=== PATIENT | female | born 1975 | race Caucasian/White ===

== ENCOUNTER 2018-01-28 08:49 | Emergency (ER) | payer OTHER, SELFPAY ==
[2018-01-28 09:03] VITALS: BP 147/92; PULSE 105; RESP 20; TEMP 36.9; O2SAT 98; BMI 43.0
--- NOTE | 2018-01-28 09:03 | ED.FEMALEGU ---
HPI - Female Genitourinary General Chief complaint: Urogenital-Female Stated complaint: UTI SYMPTOMS, BACK/SHOULDER PAIN Time Seen by Provider: 01/28/18 09:02 Source: patient Mode of arrival: ambulatory Limitations: no limitations History of Present Illness HPI Narrative: Patient is a 42-year-old female here for evaluation of approximately 4 days of dysuria, frequency, urgency and now 2-3 days of lower back pain. No vomiting. No fevers. Did try [id number] AZO without any improvement of symptoms. She states she has had a urinary tract infection the past but was several years ago. No vaginal bleeding. Is not on control. No history of sexually transmitted infections. Is not concerned about those now. No change in bowel habits. Related Data Home Medications Medication Instructions Recorded Confirmed Cyclobenzaprine Hydrochloride 0 PO * DOSE/FREQUENCY #0 01/02/07 (CYCLOBENZAPRINE HCL) IBUPROFEN (Motrin / Advil) 600 mg PO #0 01/02/07 Previous Rx's Medication Instructions Recorded phenazopyridine [Pyridium] 100 mg PO TID PRN 3 Days #6 tab 01/28/18 sulfamethoxazole-trimethoprim 1 tab PO BID 3 Days #6 tab 01/28/18 [Bactrim DS] Allergies Allergy/AdvReac Type Severity Reaction Status Date / Time No Known Drug Allergies Allergy Verified 01/28/18 09:03 Review of Systems Constitutional Denies fever(s) Cardiovascular Denies chest pain and Denies dyspnea Respiratory Denies dyspnea Gastrointestinal Gastrointestinal: Denies abdominal pain, Denies change in bowel habits, Denies cramping, Denies diarrhea, Denies nausea and Denies vomiting Genitourinary Denies hematuria, Reports urinary frequency, Denies difficulty voiding, Reports urinary hesitancy, Reports urinary urgency and Denies vaginal discharge Musculoskeletal Reports back pain, Denies myalgias and Denies arthralgias PFSH Medical History Healthy adult (Acute) Surgical History No pertinent past surgical history (Acute) Social History marital status: Smoking Status: Never smoker Exam Initial Vital Signs Initial Vital Signs: Vital Signs Temperature 98.5 F 01/28/18 09:03 Pulse Rate 105 H 01/28/18 09:03 Respiratory Rate 20 01/28/18 09:03 Blood Pressure 147/92 H 01/28/18 09:03 Pulse Oximetry 98 01/28/18 09:03 Const General: cooperative, healthy appearing, comfortable, well developed, well groomed and No acute distress Orientation: alert, awake and oriented x3 HENMT Head: normal to inspection and normocephalic Resp Effort & Inspection: normal respiratory effort Auscultation: clear to auscultation bilaterally Cardio Rate: tachycardic Rhythm: regular rhythm Pulses: radial pulses present GI Inspection: non-distended Palpation: soft, No firm and No tender Back/Spine/Pelvis Back: No CVA tenderness and other (Pain is bilateral lower paraspinal region) Skin General: no rashes or lesions noted Lesions: no lesions Rashes: no rashes Neuro General: alert, awake and oriented x3 Cognition: normal cognition Speech: speech normal Extrem General: normal to inspection and capillary refill normal Psych Appearance: grossly normal and well kempt Course Orders Ordered: ED Orders 01/28/18 09:17 Urine Microscopic Stat Ibuprofen (Advil) 800 mg PO NOW ONE Stop: 01/28/18 09:33 Vital Signs - 8 hr 01/28/18 09:03 Temperature 98.5 F Pulse Rate 105 H Respiratory Rate 20 Blood Pressure 147/92 H Pulse Oximetry 98 MDM - Female Genitourinary Lab Data Attestation: I reviewed the patient's lab results. Point of Care Testing Test Results Negative Urine Dip Bedside Urine Glucose Negative Bedside Urine Bilirubin - Negative Bedside Urine Ketone - Negative Urine Specific [place] 1.015 Bedside Urine Occult Blood +++ Bedside Urine pH 6.0 Bedside Urine Protein ++ 100 Bedside Urine Urobilinogen - Negative Bedside Urine Nitrite + Positive Bedside Urine Leukocytes +++ 500 Esterase MDM Narrative Medical decision making narrative: Patient with dysuria nitrite positive urine. Is slightly tachycardic but is afebrile. The back pain is bilateral lower paraspinal not over the kidney area. This could potentially be early pyelonephritis however she is tolerating oral intake. I feel that a trial of oral antibiotics is not unreasonable. Will also send home with Pyridium. I did discuss return precautions with the patient. Informed her that a urine culture were would be pending. She expressed understanding and agreement plan. Discharge Plan Departure Instructions: Kidney Infection, DI for Urinary Tract Infection (UTI) Activity Restrictions/Additional Instructions: The discharge instructions for a kidney infection were given to you for your information. If you are unable to take the antibiotics by mouth or have worsening symptoms you do need to return to the emergency department. Start taking her antibiotics as directed. Prescriptions: New sulfamethoxazole-trimethoprim [Bactrim DS] 800-160 mg tablet 1 tab PO BID 3 Days Qty: 6 RF: 0 phenazopyridine [Pyridium] 100 mg tablet 100 mg PO TID PRN (Reason: pain) 3 Days Qty: 6 RF: 0 No Action Cyclobenzaprine Hydrochloride (CYCLOBENZAPRINE HCL) PO * DOSE/FREQUENCY Qty: 0 RF: 0 IBUPROFEN (Motrin / Advil) 600 mg PO Qty: 0 RF: 0
[2018-01-28 09:24] LABS: Bacteria Urine None Seen
[2018-01-28 09:32] LABS: RBC Urine 5-10/HPF (0-5/HPF); WBC Urine 10-30/HPF (0-5/HPF)
[2018-01-28 09:33] LABS: Culture Indicated Urine Specimen Cultured
[2018-01-28] MEDS: IBUPROFEN 400 MG TABLET 800 MG PO (09:52)
[2018-01-28 09:54] VITALS: BP 149/101; PULSE 106; RESP 20; O2SAT 100
--- NOTE | 2018-01-28 09:55 | PC.NURSE ---
md aware of pts vs, no new orders.
== END 2018-01-28 09:55 | disposition home or self-care (01) ==
PROVIDERS: Emergency Provider Emergency Medicine
DX: N39.0 Urinary tract infection, site not specified (principal)
CPT/HCPCS: 81003; 81015; 81025; 87077; 87086; 87186; 99282; 99283